=== PATIENT | female | born 1935 | race Two or more races ===

== ENCOUNTER 2024-09-04 23:01 | Emergency (ER) | payer OTHER ==
[~2024-09-04] VITALS: Ht 134.6 cm; Wt 61.1 kg
[2024-09-04 23:38] LABS: Basophils # (auto) 0 10 ^3/uL (0-0.2); Basophils % (auto) 0.6 % (0.0-2.0); Eosinophils # (auto) 0.1 10 ^3/uL (0-0.8); Eosinophils % (auto) 1.5 % (0.0-7.0); Hematocrit 41.6 % (36.0-46.0); Hemoglobin 14.4 g/dL (12.2-16.2); Lymphocytes # (auto) 3.5 10 ^3/uL (0.4-5.4); Lymphocytes % (auto) 45.3 % (10.0-50.0); Mean Corpuscular Hemoglobin 33.8 pg (28.0-32.0); Mean Corpuscular Hgb Conc. 34.6 g/dL (32.0-36.0); Mean Corpuscular Volume 97.7 fL (80.0-100.0); Monocytes # (auto) 0.8 10 ^3/uL (0-1.3); Monocytes % (auto) 10.1 % (0.0-12.0); Neutrophils # (auto) 3.3 10 ^3/uL (1.6-8.6); Neutrophils % (auto) 42.5 % (37.0-80.0); Nucleated Red Blood Cells % 0.1 %; Platelet Count (auto) 234 10^3/uL (140-450); Red Blood Cells 4.26 10^6/uL (4.0-5.20); Red Cell Distribution Width 12.9 % (11.8-14.3); White Blood Cell 7.7 10^3/uL (4.4-10.8)
[2024-09-04 23:57] LABS: Urine Bacteria FEW /hpf (None Seen); Urine Blood 1+ /uL (Negative); Urine Clarity Clear (Clear); Urine Color Yellow (Yellow); Urine Mucus FEW (None Seen); Urine Protein, UAD TRACE (Negative); Urine Specific Gravity 1.031 (1.001-1.035); Urine Urobilinogen 2 mg/dL (Negative); Urine WBC 32 /hpf (0 - 5); Urine pH 5.5 (5.0-9.0)
[2024-09-05 00:01] LABS: Alanine Aminotransferase 29 U/L (7-40); Albumin 4.5 g/dL (3.2-4.8); Alkaline Phosphatase 68 U/L (46-116); Anion Gap 11 (5-15); Aspartate Aminotransferase 26 U/L (13-40); BUN/Creatinine Ratio 35.6 (10.0-20.0); Blood Urea Nitrogen 21 mg/dL (9-23); Calcium 9.8 mg/dL (8.7-10.4); Carbon Dioxide 20 mmol/L (20-31); Chloride 109 mmol/L (98-107); Glucose 158 mg/dL (74-106); Potassium 4.3 mmol/L (3.5-5.1); Sodium 140 mmol/L (136-145); Total Protein 7.3 g/dL (5.7-8.2)
[2024-09-05] MEDS: HYDROcodone-ACET 5/325MG TAB PO ONE (00:29)
[2024-09-05 00:32] VITALS: BP 136/48; RESP 16; TEMP 98.9; O2SAT 94
--- NOTE | 2024-09-05 01:13 | DVH ---
CLINICAL HISTORY: Head pain TECHNIQUE: Helical imaging carried out from skull base to vertex without intravenous contrast. This e xam was performed according to our departmental dose optimization program. Up-to-date CT equipment an d radiation dose reduction techniques are utilized as appropriate. CTDIVol: [CTDIvol] mGy DLP: mGy-cm WID: COMPARISON: None FINDINGS: Mild cerebral volume loss with concordant prominence of the subarachnoid spaces and ventricles. Incid ental bilateral basal ganglia calcifications. There is mild patchy low attenuation throughout the cer ebral white matter consistent with nonspecific white matter disease. There is no midline shift or mass effect. The browning white matter interfaces are maintained. The basal cisterns are patent. There is no evidence of acute intracranial hemorrhage or extra-axial fluid angel ection. The mastoid air cells and visualized paranasal sinuses are well-aerated. IMPRESSION: 1. No acute intracranial abnormality. 2. Mild cerebral volume loss and mild chronic microvascular ischemic change.
--- NOTE | 2024-09-05 01:44 | DVH ---
CLINICAL HISTORY: Neck pain TECHNIQUE: CT exam of the cervical spine was performed without intravenous contrast. This exam was pe rformed according to our departmental dose optimization program. Up-to-date CT equipment and radiatio n dose reduction techniques are utilized as appropriate. WID: COMPARISON: None FINDINGS: Grade 1 anterolisthesis at C2-C3 and C7-T1 and T1-T2 likely degenerative. The vertebral body heights are maintained. No acute cervical fracture or subluxation is identified. Multilevel moderate degenerative disc disease of the cervical spine with multilevel [id number] disc space narrowing . There is multilevel facet and uncovertebral hypertrophy resulting in multileve l bony neural foraminal stenosis which is moderate at multiple levels. Multilevel mild degenerative s tori stenosis. The paraspinous soft tissues are unremarkable. The lung apices are clear. IMPRESSION: 1. No acute fracture or traumatic malalignment. 2. Multilevel cervical spondylosis with multilevel moderate degenerative neural foraminal stenosis an d mild degenerative spinal stenosis
--- NOTE | 2024-09-05 01:53 | ED.PDOC ---
Back pain HPI HPI Comments Patient is a pleasant 88-year-old female who arrives to the ED today for evaluation of neck and headache pain concerns for past few days. Patient states she has had some issues with the neck before, with a past few days the pain has become severe at times. Patient denies any fever nausea or vomiting. Patient denies any recent trauma. Vital signs were remarkable for hypertension at arrival. Chief Complaint: Neck Pain Time Seen by MD: 23:09 Primary Care Provider: luciano Pool Notes: Nurses Notes Allergies: Coded Allergies: NO KNOWN ALLERGIES (Unverified , 09/04/24) Home Meds Active Scripts Sulfamethoxazole W/Trimethopri (Bactrim Ds Tablet) 1 Tab Tb, 1 TAB PO BID for 7 Days, #14 TAB Prov:SWETHA WILBURN PAC 09/05/24 Information Source: Patient, Friend Mode of Arrival: Ambulatory Timing: Days Duration: Since onset Severity: Moderate Prehospital treatment: None Onset: Spontaneous History of: Other (Chronic neck pain) Past Medical History PAST MEDICAL HISTORY: Denies Past Medical History (Other): Chronic neck pain concerns Surgical History: Denies all surgeries CHIEF COMMUNICATIONS OFFICER History: No Pertinent CHIEF COMMUNICATIONS OFFICER History Family History Family History: Reviewed,noncontributory to illness, No family hx of Cancer, No family hx of DM, No family hx of Heart ruthie, No family hx of HTN, No family hx ofKidney ruthie, No family hx of Liver ruthie, No family hx of Lung ruthie, No family hx of Stroke Social History Smoker: Non-Smoker Alcohol: Denies ETOH Use Drugs: Denies Drug Use Lives In: Home Constitutional: denies: chills, diaphoresis, fatigue, fever, malaise, sweats, weakness, others EENTM: reports: others (Posterior head pain concerns); denies: blurred vision, double vision, ear bleeding, ear discharge, ear drainage, ear pain, ear ringing, eye pain, eye redness, hearing loss, mouth pain, mouth swelling, nasal discharge, nose bleeding, nose congestion, nose pain, photophobia, tearing, throat pain, throat swelling, voice changes Respiratory: denies: cough, hemoptysis, orthopnea, SOB at rest, shortness of breath, SOB with excertion, stridor, wheezing, others Cardiovascular: denies: chest pain, dizzy spells, diaphoresis, Dyspnea on exertion, edema, irregular heart beat, left arm pain, lightheadedness, palpitations, PND, syncope, others Gastrointestinal: denies: abdomen distended, abdominal pain, blood streaked bowels, constipated, diarrhea, dysphagia, difficulty swallowing, hematemesis, melena, nausea, poor appetite, poor fluid intake, rectal bleeding, rectal pain, vomiting, others Genitourinary: denies: abnormal vagina bleeding, burning, dyspareunia, dysuria, flank pain, frequency, hematuria, incontinence, pain, , vagina discharge, urgency, others Neurological: denies: dizziness, fainting, headache, left sided numbness, left sided weakness, numbness, paresthesia, pre-existing deficit, right sided numbness, right sided weakness, seizure, speech problems, tingling, tremors, weakness, others Musculoskeletal: reports: neck pain; denies: back pain, gout, joint pain, joint swelling, muscle pain, muscle stiffness, others Integumetry: denies: bruises, change in color, change in hair/nails, dryness, laceration, lesions, lumps, rash, wounds, others Allergic/Immunocompromised: denies: Difficulty Healing, Frequent Infections, Hives, Itching, others Hematologic/Lymphatic: denies: anemia, blood clots, easy bleeding, easy bruising, swollen glands, others Endocrine: denies: excessive hunger, excessive sweating, excessive thirst, excessive urination, flushing, intolerance to cold, intolerance to heat, unexplained weight gain, unexplained weight loss, others Psychiatric: denies: anxiety, bipolar disorder, depression, hopeless, panic disorder, schizophrenia, sleepless, suicidal, others Physical Exam General Appearance: Moderate Distress (Due to neck and head pain concerns.), Normal HEENT: Head (Cranial exam was relatively unremarkable. No signs of trauma. No skull depressions or deformities.), Normal ENT Inspection, Pharynx Normal, TMs Normal Neck: Other (Diffuse bilateral posterior cervical spine tenderness to palpation throughout. No edema or ecchymosis. No step-offs noted. Moderate reduced range of motion. [id number] hypertonicity appreciated.) Respiratory: Chest Non-Tender, Lungs Clear, No Accessory Muscle Use, No Respiratory Distress, Normal Breath Sounds Cardiovascular: No Edema, No JVD, No Murmur, No Gallop, Normal Peripheral Pulses, Regular Rate/Rhythm Breast Exam: Deferred Gastrointestinal: No Organomegaly, Non Tender, No Pulsatile Mass, Normal Bowel Sounds, Soft Genitalia: Deferred Pelvic: Deferred Rectal: Deferred Extremities: No calf tenderness, Normal capillary refill, Normal inspection, Normal range of motion, Non-tender, No pedal edema Neurologic: Alert, shoe cobbler II-XII nml as Tested, No Motor Deficits, Normal Affect, Normal Mood, No Sensory Deficits Cerebellar Function: Normal Reflexes: Normal Skin: Dry, Normal Color, Warm Lymphatic: No Adenopathy Was a procedure done? Was a procedure done?: No Back Pain Differential Dx Differential Diagnosis: Other (Intracranial mass, degenerative disc disease of the cervical spine, cervical vertebrae fracture, sepsis, coronary event) X-Ray, Labs, Meds, VS Vital Signs Date Time Temp Pulse Resp B/P (MAP) Pulse Ox O2 Delivery O2 Flow Rate FiO2 09/05/24 02:18 71 09/05/24 00:32 98.9 75 16 136/48 (77) 94 98.9 09/05/24 00:32 75 16 94 Room Air 09/04/24 23:18 98.7 96 79 165/60 (95) 16 Lab Test 09/04/24 23:39 09/04/24 23:21 Range/Units Urine Color Yellow Yellow Urine Clarity Clear Clear Urine pH 5.5 5.0-9.0 Urine Specific [place] 1.031 1.001-1.035 Urine Protein Trace H Negative Urine Ketones Trace Negative Urine Blood 1+ H Negative /uL Urine Nitrite Negative Negative Urine Bilirubin Negative Negative Urine Urobilinogen 2 H Negative mg/dL Urine Leukocyte Esterase 3+ Negative /uL Urine RBC 4 0 - 4 /hpf Urine WBC 32 0 - 5 /hpf Urine Squamous Epithelial Cells Few <5 /hpf Urine Bacteria Few H None Seen /hpf Urine Mucus Few None Seen Urine Glucose Normal Normal mg/dL White Blood Count 7.7 4.4-10.8 10^3/uL Red Blood Count 4.26 4.0-5.20 10^6/uL Hemoglobin 14.4 12.2-16.2 g/dL Hematocrit 41.6 36.0-46.0 % Mean Corpuscular Volume 97.7 80.0-100.0 fL Mean Corpuscular Hemoglobin 33.8 H 28.0-32.0 pg Mean Corpuscular Hemoglobin Concent 34.6 32.0-36.0 g/dL Red Cell Distribution Width 12.9 11.8-14.3 % Platelet Count 234 140-450 10^3/uL Mean Platelet Volume 9.0 6.9-10.8 fL Neutrophils (%) (Auto) 42.5 37.0-80.0 % Lymphocytes (%) (Auto) 45.3 10.0-50.0 % Monocytes (%) (Auto) 10.1 0.0-12.0 % Eosinophils (%) (Auto) 1.5 0.0-7.0 % Basophils (%) (Auto) 0.6 0.0-2.0 % Neutrophils # (Auto) 3.3 1.6-8.6 10 ^3/uL Lymphocytes # (Auto) 3.5 0.4-5.4 10 ^3/uL Monocytes # (Auto) 0.8 0-1.3 10 ^3/uL Eosinophils # (Auto) 0.1 0-0.8 10 ^3/uL Basophils # (Auto) 0 0-0.2 10 ^3/uL Nucleated Red Blood Cells 0.1 % Sodium Level 140 136-145 mmol/L Potassium Level 4.3 3.5-5.1 mmol/L Chloride Level 109 H 98-107 mmol/L Carbon Dioxide Level 20 20-31 mmol/L Anion Gap 11 5-15 Blood Urea Nitrogen 21 9-23 mg/dL Creatinine 0.59 0.550-1.02 mg/dL Glomerular Filtration Rate Calc 87 >90 mL/min BUN/Creatinine Ratio 35.6 H 10.0-20.0 Serum Glucose 158 H 74-106 mg/dL Lactic Acid Level 1.8 0.4-2.0 mmol/L Calcium Level 9.8 8.7-10.4 mg/dL Total Bilirubin 1.0 0.2-1.0 mg/dL Aspartate Amino Transferase (AST) 26 13-40 U/L Alanine Aminotransferase (ALT) 29 7-40 U/L Alkaline Phosphatase 68 46-116 U/L Troponin I High Sensitivity 3 L </=34 ng/L B-Type Natriuretic Peptide 11.54 0-100 pg/mL Total Protein 7.3 5.7-8.2 g/dL Albumin 4.5 3.2-4.8 g/dL Current Medications Medications (Trade) Dose Ordered Sig/Boyd Route Start Time Stop Time Status Last Admin Acetaminophen/ Hydrocodone Bitart ([place] 5/325MG Tab) 1 tab ONCE ONCE PO 09/04/24 23:15 09/04/24 23:16 DC 09/05/24 00:29 Trimethoprim/ Sulfamethoxazole (Bactrim Ds Tablet) 1 tab ONCE ONCE PO 09/05/24 02:00 09/05/24 02:01 DC 09/05/24 02:02 X-Ray, Labs, Meds, VS Comment All studies performed the ED were evaluated by me personally. EKG revealed a sinus rhythm with a low voltage in the precordial leads. Rate was 71, [place] interval of 145 and QT interval 441. Relatively unremarkable EKG. Serum laboratories were unremarkable for any acute systemic process. Urine returned a positive urinary tract infection. Head CT was unremarkable for any acute intracranial process, but cervical spine CT revealed diffuse degenerative disc disease at multiple levels. Advised patient utilize antibiotics as directed until completion additionally, patient should follow up with the primary care provider for orthopedic referral and evaluation. Time of 1ST Reevaluation: 01:53 Reevaluation 1ST: Improved Consultation: PCP, Other (Orthopedist) Patient Education/Counseling: Diagnosis, Treatment Family Education/Counseling: Diagnosis, Treatment Departure 1 Departure Time of Disposition: 01:58 Impression: Primary Impression: UTI (urinary tract infection) Additional Impression: Chronic neck pain Disposition: HOME / SELF CARE / HOMELESS Condition: Stable Additional Instructions: Advised patient utilize antibiotics as directed until completion additionally, patient should follow up with the primary care provider for discussions related to her cervical spine concerns. e-Prescriptions Hydrocodone-Acetaminophen (Hydrocodone Bitartrate/AC 5-325 mg) 1 Tab Tab 1 TAB PO Q6HP PRN, #15 TAB Prov: SWETHA WILBURN PAC 09/05/24 Sulfamethoxazole W/Trimethopri (Bactrim Ds Tablet) 1 Tab Tb 1 TAB PO BID for 7 Days, #14 TAB Prov: SWETHA WILBURN PAC 09/05/24 Discharged With: Self, Friend Critical Care Note Critical Care Time?: No Stability Stability form required: No Heart Score Heart Score: Heart Score Response (Comments) Value History Slightly Suspicious 0 EKG Repolarization Disturb 1 Age >65 2 Risk Factors No known risk factors 0 Troponin Normal limit 0 Total 3 SWETHA WILBURN PAC Sep 05, 2024 01:53
[2024-09-05] MEDS ORDERED: BACDST PO (01:58)
[2024-09-05] MEDS: SULFAMETHOX W/TRIMETH(800/160MG) DS TAB PO ONE (02:02)
[2024-09-05 02:18] VITALS: PULSE 71
[2024-09-05] MEDS ORDERED: HYDR-4902 PO (02:29)
--- NOTE | 2024-09-05 10:45 | ECG ---
[facility] Test Date: 2024-09-05 Test Time: 02:18:44 Pat Name: CELSO BOYLE Department: ER Room: Gender: F Staff Radiographer: JEANNIE : 1935 Requested By: SWETHA WILBURN Order Number: [id number] Reading MD: Tommie Aguilar Measurements Intervals [place] Rate: 71 P: 0 OR: 145 QRS: 9 QRSD: 88 T: 136 QT: 441 QTc: 480 Interpretive Statements Sinus rhythm Low voltage, precordial leads Borderline T abnormalities, lateral leads Electronically Signed On 09-11-2024 13:20:04 PST by Tommie Aguilar Please click the below link to view image of tracing.
== END 2024-09-05 03:42 | disposition home or self-care (01) ==
LOC: ER 23:01
DX: N39.0 Urinary tract infection, site not specified (principal); M54.2 Cervicalgia; G89.29 Other chronic pain; I10 Essential (primary) hypertension
CPT/HCPCS: 36415; 70450; 72125; 80053; 81001; 83605; 83880; 84484; 85025; 93005